=== PATIENT | female | born 1965 | race Caucasian/White ===

== ENCOUNTER 2021-04-16 14:24 | Emergency (ER) | payer OTHER, SELFPAY ==
[2021-04-16] MEDS ORDERED: Cyclobenzaprine 10 MG TAB ONE (15:09)
[2021-04-16] MEDS ORDERED: Ketorolac Tromethamine 30 MG/ML VIAL ONE (15:09)
== END 2021-04-16 15:50 | disposition home or self-care (01) ==
LOC: CSHERS 14:24
DX: S22.32XA Fracture of one rib, left side, initial encounter for closed fracture (principal); E66.9 Obesity, unspecified; W18.30XA Fall on same level, unspecified, initial encounter
CPT/HCPCS: 71046; 94799; 96372; J1885

== ENCOUNTER 2022-03-31 02:37 | Observation (INO) | payer SELFPAY ==
[2022-03-31 03:21] LABS: #Eosinphils 0.1 10x3/uL (0.0-0.5); #Monocytes 0.6 10x3/uL (0.0-1.1); #Neutrophils 7.9 10x3/uL (1.5-8.4); %Basophils 0.3 % (0.0-2.0); %Eosinophils 0.8 % (0.0-6.0); %Lymphocytes 15.7 % (18.0-47.0); %Monocytes 6.3 % (0.0-10.0); %Neutrophils 76.6 % (40.0-75.0); Hemoglobin 13.1 g/dL (12.0-15.5); Mean Corpuscular HGB CONC 32.7 g/dL (32.0-36.0); Mean Corpuscular Hemoglobin 28.9 pg (27.0-33.0); Mean Corpuscular Volume 88.5 fl (81.6-98.3); Mean Platelet Volume 9.9 fl (7.4-10.4); Platelet Count 346 10x3/uL (150-450); Red Blood Cell (RBC) Count 4.53 10x6/uL (3.90-5.03); White Blood Cell (WBC) Count 10.2 10x3/uL (3.5-10.5)
[2022-03-31 03:36] LABS: ALT (SGPT) 14 U/L (8-55); AST (SGOT) 18 U/L (5-34); Albumin 4.1 g/dL (3.5-5.0); Alkaline Phosphatase 88 U/L (40-110); Anion Gap 13 mmol/L (10-20); BUN (Urea Nitrogen) 24 mg/dL (9.8-20.1); Bilirubin, Total 0.9 mg/dL (0.2-1.2); Calc. Creatinine Clearance 0 mL/min (70-130); Calcium 8.7 mg/dL (7.8-10.44); Carbon Dioxide 28 mmol/L (22-29); Chloride 104 mmol/L (98-107); Estimated GFR 82; Globulin 3.5 g/dL (2.4-3.5); Glucose 112 mg/dL (70-105); Magnesium 2.2 mg/dL (1.6-2.6); Potassium 4.3 mmol/L (3.5-5.1); Protein, Total 7.6 g/dL (6.0-8.3); Sodium 141 mmol/L (136-145)
[2022-03-31] MEDS ORDERED: levETIRAcetam 4,500 MG in Sodium Chloride 0.9% 100 ML IVPB SCH (04:00)
[2022-03-31 04:06] LABS: SARS-CoV-2 NAA Rapid Test Not Detected (NotDetected)
[2022-03-31 05:11] LABS: Bilirubin Neg (Negative); Blood, Urine 10 (Negative); Glucose, Urine (Dipstick) Normal (Negative); Ketone, Urine Negative (Negative); Leukocyte Negative (Negative); Nitrite Negative (Negative); Protein, Urine (Dipstick) 15 mg/dl (Neg-Trace); Urobilinogen Normal mg/dL (Less than 2)
[2022-03-31 05:17] LABS: Amphetamine Not Detected (NotDetected); Barbiturates Screen Not Detected (NotDetected); Benzodiazepine Screen Not Detected (NotDetected); Cocaine Metabolite Screen Not Detected (NotDetected); Methadone Not Detected (NotDetected); Methamphetamine Not Detected (NotDetected); Opiate Screen Not Detected (NotDetected); Oxycodone Screen Not Detected (NotDetected); Phencyclidine (PCP) Not Detected (NotDetected); THC/Cannabinoid Screen Not Detected (NotDetected); Tricyclic Screen Not Detected (NotDetected)
[2022-03-31 05:31] LABS: Clarity Clear (Clear)
[2022-03-31 05:32] LABS: Bacteria/HPF None Seen HPF (None Seen); Squamous Epithelial 0-3 HPF (0-3); WBC/HPF 0-3 HPF (0-3)
[2022-03-31] MEDS ORDERED: Senokot S 8.6-50 MG TAB PO PRN (06:37)
[2022-03-31] MEDS ORDERED: Ondansetron ODT 4 MG TAB PO PRN (06:37)
[2022-03-31] MEDS ORDERED: Ondansetron PF 4 MG/2 ML Vial IVP PRN (06:37)
[2022-03-31] MEDS ORDERED: Calcium Carbonate 500 MG ChewTAB PO PRN (06:37)
[2022-03-31] MEDS: Acetaminophen 325 MG TAB PO PRN ×2 (08:45→20:28)
[2022-03-31] MEDS: levETIRAcetam 500 MG TAB PO SCH ×2 (08:46→20:28)
[2022-03-31] MEDS ORDERED: FLU VACC QS2022-23(6MOS UP)/PF 60 MCG/0.5 ML SYRINGE IM ONE (09:15)
[2022-04-01 03:39] LABS: #Eosinphils 0.2 10x3/uL (0.0-0.5); #Monocytes 0.5 10x3/uL (0.0-1.1); #Neutrophils 4.3 10x3/uL (1.5-8.4); %Basophils 0.6 % (0.0-2.0); %Eosinophils 2.5 % (0.0-6.0); %Lymphocytes 25.2 % (18.0-47.0); %Monocytes 7.4 % (0.0-10.0); %Neutrophils 64.2 % (40.0-75.0); Hemoglobin 12.7 g/dL (12.0-15.5); Mean Corpuscular HGB CONC 31.1 g/dL (32.0-36.0); Mean Corpuscular Volume 90.1 fl (81.6-98.3); Mean Platelet Volume 9.8 fl (7.4-10.4); Platelet Count 305 10x3/uL (150-450); RBC Distribution Width 14.3 % (11.5-14.5); Red Blood Cell (RBC) Count 4.53 10x6/uL (3.90-5.03); White Blood Cell (WBC) Count 6.7 10x3/uL (3.5-10.5)
[2022-04-01 04:00] LABS: Anion Gap 12 mmol/L (10-20); BUN (Urea Nitrogen) 21 mg/dL (9.8-20.1); Calc. Creatinine Clearance 0 mL/min (70-130); Calcium 8.6 mg/dL (7.8-10.44); Carbon Dioxide 27 mmol/L (22-29); Chloride 106 mmol/L (98-107); Estimated GFR 95; Glucose 83 mg/dL (70-105); Potassium 4.1 mmol/L (3.5-5.1); Sodium 141 mmol/L (136-145)
[2022-04-01 08:51] VITALS: BP 149/91; TEMP 98.1
[2022-04-01] MEDS: levETIRAcetam 500 MG TAB PO SCH (08:56)
== END 2022-04-01 10:35 | disposition home or self-care (01) ==
LOC: CSHERS 02:37 → CSHTELE 06:46
PROVIDERS: ADMIT Family Medicine; ATTEND Internal Medicine
DX: G40.909 Epilepsy, unspecified, not intractable, without status epilepticus (principal); S02.2XXA Fracture of nasal bones, initial encounter for closed fracture; G47.33 Obstructive sleep apnea (adult) (pediatric); E66.01 Morbid (severe) obesity due to excess calories; Z79.899 Other long term (current) drug therapy; Z20.822 Contact with and (suspected) exposure to COVID-19; Z90.49 Acquired absence of other specified parts of digestive tract; Z98.890 Other specified postprocedural states; W19.XXXA Unspecified fall, initial encounter
CPT/HCPCS: 36415; 70450; 70486; 72125; 80048; 80053; 80306; 81003; 81015; 83605; 83735; 84484; 85025; 93005; 94760; 96374; G0378; J1650; J1953; J3490

== ENCOUNTER 2022-09-20 17:25 | Emergency (ER) | payer OTHER, SELFPAY ==
[2022-09-20] MEDS ORDERED: Ibuprofen 200 MG TAB ONE (18:59)
[2022-09-20] MEDS ORDERED: Diazepam 5 MG TAB ONE (18:59)
[2022-09-20] MEDS ORDERED: Acetaminophen 500 MG TAB ONE (18:59)
== END 2022-09-20 20:30 | disposition home or self-care (01) ==
LOC: CSHERS 17:25
DX: S30.811A Abrasion of abdominal wall, initial encounter (principal); E66.9 Obesity, unspecified; V89.2XXA Person injured in unspecified motor-vehicle accident, traffic, initial encounter
CPT/HCPCS: 71045

== ENCOUNTER 2023-01-08 13:11 | Emergency (ER) | payer OTHER, SELFPAY ==
[2023-01-08] MEDS ORDERED: diphenhydrAMINE 50 MG/ML VIAL ONE (14:05)
[2023-01-08] MEDS ORDERED: Metoclopramide HCl 10 MG/2 ML VIAL ONE (14:06)
[2023-01-08] MEDS ORDERED: Ketorolac Tromethamine 30 MG/ML VIAL ONE (14:06)
[2023-01-08 14:17] LABS: #Monocytes 0.6 10x3/uL (0.0-1.1); #Neutrophils 14.2 10x3/uL (1.5-8.4); %Basophils 0.3 % (0.0-2.0); %Eosinophils 0.1 % (0.0-6.0); %Lymphocytes 6.3 % (18.0-47.0); Hematocrit 41.5 % (34.9-44.5); Mean Corpuscular HGB CONC 31.3 g/dL (32.0-36.0); Mean Corpuscular Hemoglobin 28.3 pg (27.0-33.0); Mean Corpuscular Volume 90.2 fl (81.6-98.3); Mean Platelet Volume 9.9 fl (7.4-10.4); Platelet Count 342 10x3/uL (150-450); RBC Distribution Width 13.8 % (11.5-14.5); White Blood Cell (WBC) Count 15.9 10x3/uL (3.5-10.5)
[2023-01-08 14:27] LABS: ALT (SGPT) 8 U/L (8-55); AST (SGOT) 11 U/L (5-34); Albumin 3.9 g/dL (3.5-5.0); Alkaline Phosphatase 94 U/L (40-110); Anion Gap 14 mmol/L (10-20); BUN (Urea Nitrogen) 20 mg/dL (9.8-20.1); Bilirubin, Total 0.9 mg/dL (0.2-1.2); Calc. Creatinine Clearance 0 mL/min (70-130); Calcium 8.8 mg/dL (7.8-10.44); Carbon Dioxide 28 mmol/L (22-29); Chloride 103 mmol/L (98-107); Estimated GFR 78; Globulin 4.2 g/dL (2.4-3.5); Glucose 124 mg/dL (70-105); Potassium 4.4 mmol/L (3.5-5.1); Protein, Total 8.1 g/dL (6.0-8.3); Sodium 141 mmol/L (136-145)
[2023-01-08 14:47] LABS: Bilirubin Neg (Negative); Blood, Urine 250 (Negative); Clarity Cloudy (Clear); Glucose, Urine (Dipstick) Normal (Negative); Ketone, Urine Negative (Negative); Leukocyte 500 (Negative); Nitrite Negative (Negative); Protein, Urine (Dipstick) 100 mg/dl (Neg-Trace); Urobilinogen Normal mg/dL (Less than 2)
[2023-01-08 15:04] LABS: CAUTI Indications for Culture Pelvic or flank pain; RBC/HPF 21-50 HPF (0-3); WBC/HPF Greater than 50 HPF (0-3)
[2023-01-08 15:05] LABS: Squamous Epithelial None Seen HPF (0-3)
[2023-01-08 15:06] LABS: Bacteria/HPF 3+ HPF (None Seen); White Blood Cell Cast 0-3 LPF (None Seen)
[2023-01-08 15:08] LABS: Urine Culture Reflex Yes Yes
[2023-01-08] MEDS ORDERED: cefTRIAXone (ROCEPHIN) 1 GM VIAL ONE (15:25)
== END 2023-01-08 17:13 | disposition home or self-care (01) ==
LOC: CSHERS 13:11
DX: N10 Acute pyelonephritis (principal); N39.0 Urinary tract infection, site not specified; R51.9 Headache, unspecified; E66.9 Obesity, unspecified
CPT/HCPCS: 36415; 80053; 81001; 83605; 85025; 87040; 87077; 87086; 87186; 96365; 96366; 96375; J0696; J1200; J1885; J2765

== ENCOUNTER 2023-04-05 12:27 | Emergency (ER) | payer SELFPAY ==
[2023-04-05] MEDS ORDERED: Lidocaine 1% w/Epinephrine 1:200K 30 ML VIAL ONE (14:07)
[2023-04-05] MEDS ORDERED: Lidocaine 1% PF 5 ML VIAL ONE (14:07)
== END 2023-04-05 15:16 | disposition home or self-care (01) ==
LOC: CSHERS 12:27
DX: L02.419 Cutaneous abscess of limb, unspecified (principal)
CPT/HCPCS: 10060